=== PATIENT | male | born 1955 | race Caucasian/White ===

== ENCOUNTER 2024-06-20 14:58 | Emergency (ER) | payer BC, OTHER ==
--- OUTSIDE RECORDS SUMMARY | 2024-06-20 15:02 | XMS REPORT | Continuity of Care Document ---
Author Name Unknown Address [address] [facility] [address] [place] [address] [facility] thconnect Address [address] [facility] [address] [place] [address] Care Team Providers Care Industrial Organizational Psychologist Name Role Phone LENKA CARLOS Primary Care Physician Unavailab YAZMIN Patel V Attending Clinician Unavailable DR LENKA CARLOS Attending Clinician Unavailab man [phone] Attending Clinician Unavailable Lenka Carlos Attending Clinician Unavailable RIC PEREZ Attending Clinician Unavailable NIXON HERNANDEZ Attending Clinician Unavailable LEIGHTON MIJARES Attending Clinician Unavailable MERYL Attending Clinician Unavailable Mayur Retana Attending Clinician [phone] Hernesto Attending Clinician Unavailable Nick Lopez Attending Clinician Unavailable EDMUNDO GUZMAN Attending Clinician Unavailable Abundio Alvarez Attending Clinician Unavailable NO PHYSICIAN, . Attending Clinician Unavailable NAVID CLAUDIO Attending Clinician Unavailable DR LENKA CARLOS Admitting Clinician Unavailab donovan SHETH Admitting Clinician Unavailable Hernesto Admitting Clinician Unavailable Payers Payer Name Policy Type Policy Number Effective Date Expirati on Date Source [employer] [id number] 2022 00:00:00 [employer] HEALTH[employer] (MEDICARE REPLACEMENT HMO) [id number] 2022 00:00:00 Problems Condition Name Condition Details Condition Category Status Onset Date Resolution Date Last Treatment Date Treating Clinician Comments Source Tendinitis of right rotator cuff Tendinitis of right rotator cuff Disease Active 07-17 00:00: 00 [facility] Lumbar stenosis with neurogenic claudicati on Lumbar stenosis with neurogenic claudicati on Disease Active 04-16 00:00: 00 [facility] Neuropathi c pain Neuropathi c pain Disease Active 04-16 00:00: 00 [facility] Chronic pain syndrome Chronic pain syndrome Disease Active 04-16 00:00: 00 [facility] Lumbar radiculopa thy Lumbar radiculopa thy Disease Active 04-16 00:00: 00 [facility] Myofascial pain syndrome Myofascial pain syndrome Disease Active 04-16 00:00: 00 [facility] Mixed hyperlipid emia Mixed Hyperlipid emia Problem Active 05-23 00:00: 00 [facility] Gout Gout Problem Active 05-23 00:00: 00 [facility] Mixed anxiety and depressive disorder Mixed Anxiety and Depressive Disorder Problem [facility] Hypertensi ve disorder Hypertensi ve Disorder Problem Active 8 00:00: 00 [facility] Deep venous thrombosis Deep Venous Thrombosis Problem Active 8 00:00: 00 [facility] Benign prostatic hyperplasi a Benign Prostatic Hyperplasi a Problem Active 8 00:00: 00 [facility] Chronic back pain Chronic Back Pain Problem [facility] Allergies, Adverse Reactions, Alerts Allergy Name Allergy Type Status Severity Reaction(s) Onset Date Inactive Date Treating Clinician Comments Source No Known Drug Allergie s DA Active U 2022-10 00:00: 00 [facility] Social History Social Habit Start Date Stop Date Quantity Comments Source Gender identity [facility] History of tobacco use Passive smoker [facility] Alcohol intake 2023-07-09 00:00:00 2023-07-09 00:00:00 3.43 /d [facility] Exposure to SARS-CoV-2 (event) 2023-02-24 00:00:00 2023-03-06 10:34:00 Not sure [facility] History of Social function 2023-03-06 00:00:00 2023-03-06 00:00:00 [facility] Sex Ass[birth year] At 1955 00:00:00 1955 00:00:00 [facility] Smoking Status Start Date Stop Date Source Heavy Tobacco Smoker [facility] Smokes tobacco daily 2023-03-06 00:00:00 [facility] Medications Ordered Medication Name Filled Medication Name Start Date Stop Date Current Medication? Ordering Clinician Indication Dosage Frequency Signature (SIG) Comments Components Source triamcinolo ne acetonide (Kenalog-40 ) injection 80 mg 07-17 18:30: 00 07-17 18:30 :00 No [id number] 80mg [facility] apixaban (Eliquis) 5 MG tablet 07-09 13:54: 12 Yes Q12H every 12 (twelve) hours. [facility] metFORMIN (Glucophage ) 500 MG tablet 07-09 13:54: 12 Yes 500mg Take 500 mg by mouth. [facility] NIFEdipine (Procardia) 10 MG capsule 07-09 13:54: 12 Yes 10mg QD Take 10 mg by mouth 1 (one) time each day. [facility] metFORMIN (Glucophage ) 500 MG tablet 03-06 11:28: 11 Yes 500mg Take 500 mg by mouth. [facility] NIFEdipine (Procardia) 10 MG capsule 03-06 11:28: 11 Yes 10mg QD Take 10 mg by mouth 1 (one) time each day. [facility] apixaban (Eliquis) 5 MG tablet 03-06 11:26: 58 Yes Q12H every 12 (twelve) hours. [facility] apixaban (Eliquis) 5 MG tablet 4-10 14:52: 04 Yes Q12H every 12 (twelve) hours. [facility] tamsulosin (Flomax) 0.4 MG 24 hr capsule 4-03 00:00: 00 Yes QD Take by mouth 1 (one) time each day. [facility] diazePAM (Valium) 5 MG tablet 3-05 00:00: 00 Yes TAKE ONE (1) TABLET(S) BY MOUTH ONCE A DAY NEEDED ANXIETY [facility] HYDROcodone -acetaminop hen (Cochise) 10-325 MG tablet 3-03 00:00: 00 Yes TAKE ONE (1) TABLET EVERY 4 TO 6 HOURS BY MOUTH DIRECTED FOR 30 DAYS. [facility] amoxicillin (Amoxil) 500 MG capsule 2-16 00:00: 00 Yes 500mg [id number] 3D Take 500 mg by mouth in the morning and 500 mg at noon and 500 mg in the evening. [facility] NIFEdipine CC (Adalat CC) 30 MG 24 hr tablet 2-04 00:00: 00 Yes TAKE 1 TABLET EVERY DAY BY ORAL ROUTE DIRECTED FOR 90 DAYS. [facility] cyclobenzap rine (Flexeril) 10 MG tablet 2-02 00:00: 00 Yes TAKE 1 TABLET TWICE A DAY BY ORAL ROUTE NEEDED FOR 15 DAYS. [facility] simvastatin (Zocor) 10 MG tablet 2- 00:00: 00 Yes 10mg QD Take 10 mg by mouth 1 (one) time each day. [facility] triamcinolo ne (Kenalog) 0.1 % cream 2-02 00:00: 00 Yes [facility] Eliquis 5 mg tablet Take 1 tablet twice a day by oral route. Eliquis 5 mg tablet Take 1 tablet twice a day by oral route. No 1 BID Eliquis 5 mg tablet Take 1 tablet twice a day by oral route. [facility] ergocalcife rol (vitamin D2) 1,250 mcg (50,000 unit) capsule TAKE ONE (1) CAPSULE EVERY WEEK BY ORAL ROUTE. ergocalcife rol (vitamin D2) 1,250 mcg (50,000 unit) capsule TAKE ONE (1) CAPSULE EVERY WEEK BY ORAL ROUTE. No ergocalcif christi (vitamin D2) 1,250 mcg (50,000 unit) capsule TAKE ONE (1) CAPSULE EVERY WEEK BY ORAL ROUTE. [facility] Vital Signs Vital Name Observation Time Observation Value Comments S ource Systolic blood pressure 2023-07-09 18:49:00 124 mm[Hg] [facility] Diastolic blood pressure 2023-07-09 18:49:00 74 mm[Hg] [facility] Heart rate 2023-07-09 18:49:00 88 /min [facility] Body height 2023-07-09 18:49:00 165.1 cm [facility] Body weight 2023-07-09 18:49:00 73.029 kg [facility] BMI 2023-07-09 18:49:00 26.79 kg/m2 [facility] Systolic blood pressure 2023-04-16 18:14:00 145 mm[Hg] [facility] Diastolic blood pressure 2023-04-16 18:14:00 71 mm[Hg] [facility] Heart rate 2023-04-16 18:04:00 75 /min [facility] Body height 2023-04-16 18:04:00 165.1 cm [facility] Body weight 2023-04-16 18:04:00 73.483 kg [facility] BMI 2023-04-16 18:04:00 26.96 kg/m2 [facility] Systolic blood pressure 2023-03-06 16:29:00 124 mm[Hg] [facility] Diastolic blood pressure 2023-03-06 16:29:00 72 mm[Hg] [facility] Heart rate 2023-03-06 16:29:00 68 /min [facility] Body height 2023-03-06 16:28:00 165.1 cm [facility] Body weight 2023-03-06 16:28:00 73.483 [facility] BMI 2023-03-06 16:28:00 26.96 kg/m2 [facility] Systolic blood pressure 2023-01-29 20:00:00 120 mm[Hg] [facility] Diastolic blood pressure 2023-01-29 20:00:00 72 mm[Hg] [facility] Heart rate 2023-01-29 20:00:00 86 /min [facility] Body height 2023-01-29 20:00:00 165.1 cm [facility] weight 2023-01-29 20:00:00 76.204 [facility] BMI 2023-01-29 20:00:00 27.96 [facility] Diastolic 2022-05-23 00:00:00 74 mm[Hg] [facility] Height 2022-05-23 00:00:00 67 [in_i] [facility] BMI (Body Mass Index) 2022-05-23 00:00:00 25.5 kg/m2 [facility] BP Systolic 2022-05-23 00:00:00 120 mm[Hg] [facility] Body Weight 2022-05-23 00:00:00 2600 [oz_av] [facility] Procedures Procedure Date / Time Performed Performing Clinician Source AR ARTHROCENTESIS ASP/INJ MAJOR JOINT/BURSA W/OUT US 2023-07-17 18:30:00 Ric Perez [facility] Cataract Surgery [facility] Injection [facility] Injection of Knee [facility] Femoral Arteriography [facility] Stripping of Vein [facility] Kidney Operation [facility] Plan of Care Planned Activity Planned Date Details Comments Source Diagnostic Test Pending 2022-05-23 00:00:00 CMP, serum or plasma [code = CMP, serum or plasma] [facility] Diagnostic Test Pending 2022-05-23 00:00:00 lipid panel, serum [code = lipid panel, serum] [facility] Diagnostic Test Pending 2022-05-23 00:00:00 PSA, serum or plasma [code = PSA, serum or plasma] [facility] Diagnostic Test Pending 2022-05-23 00:00:00 CBC w/ auto diff [code = CBC w/ auto diff] [facility] Encounters Start Date/Time End Date/Time Encounter Type Admission Type Attending Clinicians Care Facility Care Department Encounter ID Source 2023-05-22 08:38:36 Outpatient [facility] [id number] [facility] 2023-05-16 16:56:02 Outpatient [facility] [id number] [facility] 2023-05-07 10:52:18 Outpatient [facility] [id number] [facility] 2023-04-15 17:45:30 Outpatient [facility] [id number] [facility] 2023-03-15 13:32:51 Outpatient [facility] [id number] [facility] 2023-03-06 10:35:06 Outpatient [facility] [id number] [facility] 2023-02-27 16:53:45 Outpatient [facility] [id number] [facility] 2023-02-01 09:29:42 Outpatient [facility] [id number] [facility] 2023-01-29 14:09:24 Outpatient [facility] [id number] [facility] 2023-01-19 15:28:56 Outpatient [facility] [id number] [facility] 2023-01-18 16:27:29 Outpatient [facility] [id number] [facility] 2023-01-04 11:49:40 Outpatient [facility] [id number] [facility] 2022-12-27 14:04:35 Outpatient [facility] [id number] [facility] 2024-04-21 16:32:00 2024-04-21 16:32:00 Outpatient YAZMIN GONG [facility] [id number] [facility] 2023-10-09 09:53:00 2023-10-09 09:54:00 Outpatient N LENKA CARLOS [id number] [facility] [id number] [facility] 2023-09-28 06:10:00 2023-09-28 06:10:00 Outpatient [facility] [id number] [facility] 2023-09-28 06:10:00 2023-09-28 00:00:00 Outpatient Elective Lenka Carlos [facility] [id number] [facility] 2023-07-17 13:30:00 2023-07-17 14:35:45 Office Visit EPIFANIORIC [facility] [id number] [facility] 2023-07-17 00:00:00 2023-07-17 14:35:45 Outpatient [facility] [id number] [facility] 2023-07-09 13:10:00 2023-07-09 13:10:00 Office Visit NIXON HERNANDEZ [facility] [id number] [facility] 2023-06-18 11:10:00 2023-06-18 11:10:00 Outpatient MARYNIXON TURNER [facility] [id number] [facility] 2023-05-29 03:30:00 2023-05-29 03:30:00 Outpatient MARYNIXON TURNER [facility] [id number] [facility] 2023-04-16 13:00:00 2023-04-16 13:00:00 Office Visit NIXON HERNANDEZ [facility] [id number] [facility] 2023-03-12 14:00:00 2023-03-12 14:00:00 Outpatient MARYNIXON TURNER [facility] [id number] [facility] 2023-03-06 11:30:00 2023-03-06 11:30:00 Office Visit LEIGHTON MIJARES [facility] [id number] [facility] 2023-02-20 01:45:00 2023-02-20 01:45:00 Outpatient MARYNIXON TURNER [facility] [id number] [facility] 2023-01-29 15:00:00 2023-01-29 15:00:00 Office Visit MARYNIXON TURNER [facility] [id number] [facility] 2022-12-18 08:35:00 2022-12-18 08:35:00 Outpatient Yazmin Gong [facility] [id number] [facility] 2022-05-23 00:00:00 2022-05-23 00:00:00 Outpatient LAINEY_R [facility] [id number] 2022-05-23 00:00:00 2022-05-23 00:00:00 Outpatient Mayur Retana [facility] [id number] 2022-05-23 00:00:00 2022-05-23 00:00:00 Mayur Retana, DO: [address] , [place] [address] , Ph. [facility], DR. RETANA [id number] [facility] 2022-05-22 00:00:00 2022-05-22 00:00:00 Outpatient MERYL [facility] [id number] [facility] 2020-09-08 02:35:00 2020-09-08 02:35:00 Outpatient [place] [facility] [id number] 2017-12-17 16:24:00 2017-12-17 16:24:00 Outpatient Nick Mascorro [facility] [id number] [facility] 2017-10-29 15:03:00 2017-10-29 15:03:00 Outpatient Nick Mascorro [facility] [id number] [facility] 2017-10-01 10:19:00 2017-10-01 10:19:00 Outpatient Nick Mascorro [facility] [id number] [facility] 2017-05-28 13:47:00 2017-05-28 13:47:00 Outpatient Nick Mascorro [facility] [id number] [facility] 2017-04-27 10:20:00 2017-04-27 10:20:00 Outpatient Nick Mascorro [facility] [id number] [facility] 2017-03-14 12:23:00 2017-03-14 12:23:00 Outpatient Nick Mascorro [facility] [id number] [facility] 2017-02-12 10:53:00 2017-02-12 16:49:00 Emergency ER EDMUNDO GUZMAN [facility] [id number] [facility] 2017-02-09 11:00:00 2017-02-09 11:00:00 Outpatient Nick Mascorro [facility] [id number] [facility] 2016-10-02 11:24:00 2016-10-02 11:24:00 Outpatient Nick Mascorro [facility] [id number] [facility] 2016-08-25 11:51:00 2016-08-25 11:51:00 Outpatient Nick Mascorro [facility] [id number] [facility] 2016-07-13 16:08:00 2016-07-13 16:08:00 Outpatient Yazmin Gong [facility] [id number] [facility] 2016-04-11 17:00:00 2016-04-11 17:00:00 Outpatient Nick Mascorro [facility] [id number] [facility] 2016-01-11 12:38:00 2016-01-11 12:38:00 Outpatient Nick Mascorro [facility] [id number] [facility] 2015-10-13 17:36:00 2015-10-13 17:36:00 Outpatient Nick Mascorro [facility] [id number] [facility] 2009-09-14 11:38:00 2009-09-14 11:38:00 Outpatient Nick Mascorro [facility] [id number] [facility] 2007-11-08 15:39:00 2007-11-08 15:39:00 Outpatient Abundio Thakur [facility] [id number] [facility] 2006-12-24 08:49:00 2006-12-24 08:49:00 Outpatient NO PHYSICIAN, . [facility] [id number] [facility] 2003-09-12 11:17:00 2003-09-12 16:00:00 Emergency ER NAVID CLAUDIO [facility] [id number] [facility] Results Test Description Test Time Test Comments Results Result Co mments Source Partial Thromboplastin [id number] 08:00:00* Test Item Value Reference Range Interpretation Comme nts Partial Thromboplastin Time (test code = PTT) 25.4 Seconds 23.9-32.8 N Basic Metabolic [id number] 08:00:00* Test Item Value Reference Range Interpretation Comme nts SODIUM (test code = NA) 142.0 mmol/L 136.0-145.0 N Potassium,K (test code = K) 4.2 mmol/L 3.0-5.1 N Chloride (test code = CL) 107 mmol/L 98-107 N Carbon Dioxide (test code = CO2) 29 mmol/L 20-31 N Anion Gap (test code = GAP) 6 mmol/L 5-15 N Blood Urea Nitrogen (test code = BUN) 13 mg/dL 9-23 N Creatinine (test code = CREATT) 0.77 mg/dL 0.55-1.02 N Creatinine Clr Calc Pharmacy (test code = CRCLPHA) 79.01 mL/min Estimated Glomerular Filt Rate (test code = EGFR.XX) 99 See_Comment Reported eGFR is based on the CKD-EPI 202 equation thatdoes not use a race coefficient. Additional information canbe found at:[id number] ([email or web address]) [Automated message] The system which generated this result transmitted reference range: >=90 ml/min/1.73m2. The reference range was not used to interpret this result as normal/abnormal. BUN/Creatinine Ratio (test code = BCRATIO) 17 ratio 10-20 N Glucose (test code = GLU) 152 mg/dL 74-106 H Osmolality,Calculate d (test code = OSMOC) 296.6 Calcium (test code = CA) 9.4 mg/dL 8.3-10.6 N Lipid [id number] 08:00:00* Test Item Value Reference Range Interpretation Comme nts Triglycerides (test code = TRIG) 253 mg/dL 9-200 H Cholesterol (test code = CHOL) 247 mg/dL 0-200 H LDL Cholesterol,Calculated (test code = LDLC) 142 mg/dL 0-130 H LDL (mg/dL)Op timal <100Near Optimal 100-129Borderline High 130-159High 160-189Very High >=190 VLDL CHOLESTEROL (test code = VLDL) 51 mg/dL HDL Cholesterol (test code = HDL) 54 mg/dL 40-60 N LDL/HDL Ratio (test code = LDLHDL) 3 Chol/HDL Ratio (test code = CHLHDL) 4.6 ratio 0.0-5.0 N
--- NOTE | 2024-06-20 16:16 | RAD REPORT ---
EXAM DESCRIPTION: US - Extremity Venous Uni Ltd - 06/20/2024 3:57 pm CLINICAL HISTORY: SWELLING Leg swelling and edema. COMPARISON: No comparisons FINDINGS: Left lower extremity venous system was interrogated with Doppler technique. Thrombus is no shima in the left popliteal vein most compatible with DVT. No additional DVT evident. IMPRESSION: Positive left popliteal DVT.
--- NOTE | 2024-06-20 16:17 | RAD REPORT ---
EXAM DESCRIPTION: US - Lower Extremity Artery Uni Ltd - 06/20/2024 3:57 pm CLINICAL HISTORY: Pain;Swelling COMPARISON: No comparisons FINDINGS: Left lower extremity arterial system demonstrates triphasic waveforms to the level of the left dorsalis pedis. Left dorsalis pedis demonstrates blunted and monophasic waveform. No complete oc clusion is seen. IMPRESSION: [id number] peripheral vascular disease left dorsalis pedis artery.
[2024-06-20] MEDS ORDERED: HYDROCODONE/APAP 7.5/325 MG TAB ONE (18:04)
[2024-06-20 18:17] LABS: Absolute Basophils 0.1 K/uL (0-0.5); Absolute Eosinophils 0.3 K/uL (0-0.5); Absolute Lymphocytes (CBC) 2.6 K/uL (0.7-4.9); Absolute Monocytes 0.5 K/uL (0.1-1.3); Absolute Neutrophil 3.1 K/uL (1.8-8.0); Hematocrit 44.1 % (39.6-49.0); Hemoglobin 15.1 g/dL (13.6-17.9); Lymphocytes % 39.5 % (15.3-44.8); MCH 32.4 pg (27.0-35.0); MCHC 34.2 g/dL (32.0-36.0); MCV 94.7 fL (80-100); MPV 7.2 fL (7.6-11.3); Neutrophils % 46.5 % (41.7-73.7); Nucleated Red Blood Cells % 0.1 % (0-0); Platelets 229 thou/uL (152-406); RBC Red Blood Cell Count 4.66 M/uL (4.33-5.43); Red Cell Distribution Width 13.1 % (12.1-15.2)
[2024-06-20 18:21] LABS: PT Prothrombin Time 11.2 SECONDS (9.4-12.5); PTT, Activated Partial Thromb 31.1 SECONDS (24.3-36.9)
[2024-06-20 18:55] LABS: Anion Gap 3.7 mEq/L (5.0-15.0); Potassium 3.7 mEq/L (3.5-5.1)
--- NOTE | 2024-06-20 19:55 | EDPHYS ---
Physician Documentation [facility] Name: Mango Dean Age: 69 yrs Sex: Male : 1955 Arrival Date: 06/20/2024 Time: 14:58 Bed 12 Private MD: ED Braulio Wynn HPI: 06/20 15:35 This 69 yrs old Male presents to ER via Ambulatory with complaints of Wound Check - leg.cp 15:35 The patient presents with pain, that is acute, swelling, open wounds to left lower leg. cp 15:35 Onset: The symptoms/episode began/occurred last month, and became worse 2 day(s) ago, cp after "popping" wound open. 15:35 Associated signs and symptoms: Pertinent positives: redness, Pertinent negatives fever, cp numbness, weakness. Treatment prior to arrival includes: no previous treatment. 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 - Infectious Disease History:: Denies. - Social history:: Smoking status: Patient reports the use of cigarette tobacco products, cigars. ROS: 15:40 MS/extremity: Positive for erythema, pain, swelling, tenderness, of the left lower leg, cp open wounds, 15:40 Eyes: Negative for injury, pain, redness, and discharge, cp 15:40 Constitutional: Negative for body aches, chills, fever, poor PO intake, 15:40 Cardiovascular: Negative for chest pain, palpitations, 15:40 Respiratory: Negative for cough, shortness of breath, wheezing, 15:40 Abdomen/GI: Negative for abdominal pain, nausea, vomiting, and diarrhea, 15:40 Neuro: Negative for altered mental status, headache, numbness, weakness, 15:40 All other systems are negative, Exam: 15:45 Constitutional: The patient appears in no acute distress, alert, awake, cp non-diaphoretic, non-toxic, well developed, well nourished, uncomfortable, 15:45 Head/Face: Normocephalic, atraumatic. cp 15:45 Eyes: Periorbital structures: appear normal, Conjunctiva: normal, no exudate, no injection, Sclera: no appreciated abnormality, Lids and lashes: appear normal, bilaterally, 15:45 ENT: External ear(s): are unremarkable, Nose: is normal, Mouth: Lips: moist, Oral mucosa: pink and intact, moist, Posterior pharynx: Airway: no evidence of obstruction, patent, 15:45 Chest/axilla: Inspection: normal, 15:45 Cardiovascular: Rate: normal, Rhythm: regular, Edema: is not appreciated, JVD: is not appreciated, 15:45 Respiratory: the patient does not display signs of respiratory distress, Respirations: normal, no use of accessory muscles, no retractions, labored breathing, is not present, Breath sounds: are clear throughout, no decreased breath sounds, no stridor, no wheezing, 15:45 Abdomen/GI: Inspection: abdomen appears normal, Palpation: abdomen is soft and non-tender, in all quadrants, 15:45 Musculoskeletal/extremity: Extremities: noted in the left lower leg: mild erythema noted anterior proximal lower leg, mild swelling, tenderness posterior left knee, 2 superficial wounds noted with scant drainage proximal anterior left lower leg and medial side of left ankle, 15:45 Neuro: Orientation: to person, place \\T\\ time. Mentation: is normal, Motor: moves all fours, strength is normal, Sensation: is normal, 18:17 ECG was reviewed by the Attending Physician. cp Vital Signs: 15:23 BP 132 / 97; Pulse 78; Resp 16; Temp 98.1; Pulse Ox 97% ; Weight 72.57 kg; Height 5 ft. db 5 in. ; 18:00 BP 100 / 71; Pulse 78; Resp 18; Temp 98.1; Pulse Ox 100% ; ar6 18:30 BP 98 / 74; Pulse 77; Resp 17; Pulse Ox 100% on R/A; ar6 21:23 BP 106 / 68; Pulse 77; Resp 18; Pulse Ox 99% on R/A; ar6 15:23 Body Mass Index 26.63 (72.57 kg, 165.1 cm) db MDM: 15:22 Patient medically screened. ec2 19:55 Data reviewed: vital signs, nurses notes, lab test result(s), EKG, radiologic studies, cp ultrasound, I have discussed the patient's presentation/case with the attending Emergency Department Physician;. 19:55 Differential diagnosis: cellulitis, abscess, dvt, sepsis. I considered the following cp discharge prescriptions or medication management in the emergency department Medications were administered in the Emergency Department. See MAR. Counseling: I had a detailed discussion with the patient and/or guardian regarding the historical points, exam findings, and any diagnostic results supporting the discharge/admit diagnosis, lab results, radiology results, the need for outpatient follow up, a family practitioner, to return to the emergency department if symptoms worsen or persist or if there are any questions or concerns that arise at home. ED course: Vital signs stable. Discussed results of today's ultrasound that showed DVT in the popliteal vein. After discussing this with the patient feel like this is an acute DVT and patient reports has been taking his prescribed 5 mg of Eliquis twice daily. I spoke with Dr. Schneider, the hospitalist, concerning admission for treatment of the DVT and his recommendation is outpatient treatment with patient discontinuing the Eliquis and starting Xarelto. 06/20 16:54 Order name: BMP; Complete Time: 19:09 cp 06/20 19:09 Interpretation: Normal except: ANION GAP 3.7. cp 06/20 16:54 Order name: CBC with Diff; Complete Time: 19: cp 06/20 16:54 Order name: PT-INR; Complete Time: 19: cp 06/20 16:54 Order name: Ptt, Activated; Complete Time: 19: cp 06/20 15:31 Order name: LE Artery Uni Ltd; Complete Time: 16:31 cp 06/20 16:49 Interpretation: Report reviewed. cp 06/20 15:31 Order name: Extremity Venous Unilateral Ltd; Complete Time: 16:31 cp 06/20 16:50 Interpretation: Report reviewed. cp 06/20 16:54 Order name: EKG; Complete Time: 16:54 cp 06/20 16:54 Order name: IV; Complete Time: 18:02 cp 06/20 16:54 Order name: EKG - Nurse/Tech; Complete Time: 18:12 cp 06/20 18:20 Order name: Labs - recollect needed: please recollect green top; Complete Time: 19:54 em1 EC:17 Rate is 62 beats/min. Rhythm is regular. NJ interval is normal. QRS interval is cp prolonged at 108 msec. QT interval is normal. T waves are Inverted in leads aVL, aVR, V2. Interpreted by me. Reviewed by me. Administered Medications: 18:00 Drug: Hydrocodone-Acetaminophen PO (7.5 mg-325 mg) 1 tabs PO once; RASS on ADMIN: ar6 Combtv4, Very Agttd3, Agttd2, Rstlss1, AlertClm0, Drwsy-1, Lt Sdtn-2, Mod Sdtn-3, Dp Sdtn-4, UnArsble-5 Route: PO; 18:20 Follow up: Response: No adverse reaction; Pain is decreased ar6 20:15 Drug: Xarelto PO 15 mg PO once Route: PO; ar6 21:24 Follow up: Response: No adverse reaction ar6 20:15 Drug: Clindamycin IVPB 900 mg IVPB once over 30 mins; (mix in 50 mL) Route: IVPB; ar6 Infused Over: 30 mins; Site: right antecubital; 21:24 Follow up: Response: No adverse reaction; IV Status: Completed infusion; IV Intake: [id number] Disposition Summary: 06/20/24 19:55 Discharge Ordered Notes: Location: Home cp Problem: new cp Symptoms: have improved cp Condition: Stable cp Diagnosis - Acute embolism and thrombosis of unspecified deep veins of left lower extremity cp - Cellulitis of left lower limb cp Followup: cp - With: Private Physician - When: 2 - 3 days - Reason: Wound Recheck Discharge Instructions: - Discharge Summary Sheet cp - Cellulitis, Adult cp - Deep Vein Thrombosis cp Forms: - Medication Reconciliation Form cp - Antibiotic Education cp - Prescription Opioid Use cp - Patient Portal Instructions cp - Leadership Thank You Letter cp Prescriptions: - Clindamycin HCl 300 mg Oral Capsule - take 1 capsule ORAL route every 6 hours for 10 days; 40 capsule; Refills: 0, cp Product Selection Permitted - Xarelto 15 mg Oral tablet - take 1 tablet ORAL route 2 times per day for 21 days; 42 tablet; Refills: 0, cp Product Selection Permitted Addendum: 06/22/2024 22:15 I was immediately available for consultation during this patient's visit. I did not e c2 personally see the patient or discuss the patient with the MARIA D. . Signatures: Dispatcher [employer] Nate Eaton em1 Baudilio Cruz PA PA cp Allie Loja RN RN db Braulio Benitez MD MD ec2 Maier, Kenna, RN RN ar6 Corrections: (The following items were deleted from the chart) 06/20 15: 15:24 PMHx: None; db db 15 15:31 Extremity Venous Uni Ltd+[email or web address] ordered. EDMS EDMS
--- NOTE | 2024-06-20 19:55 | ER ---
[facility] Name: Mango Dean Age: 69 yrs Sex: Male : 1955 Arrival Date: 06/20/2024 Time: 14:58 Bed 12 Private MD: Diagnosis: Acute embolism and thrombosis of unspecified deep veins of left lower extremity;Cellulitis of left lower limb Presentation: 06/20 15:23 Chief complaint: Patient states: LEFT LOWER LEG WITH WOUND X 2 DAYS. STATES POPPED THE db WOUND A MONTH AGO. NOW HAS WOUND AND LEG IS RED AND PURPLE IN COLOR. Coronavirus screen: Client denies travel out of the [place] in the last 14 days. At this time, the client does not indicate any symptoms associated with coronavirus-19. Ebola Screen: Patient negative for fever greater than or equal to 101.5 degrees Fahrenheit, and additional compatible Ebola Virus Disease symptoms Patient denies exposure to infectious person. Patient denies travel to an Ebola-affected area in the 21 days before illness onset. No symptoms or risks identified at this time. Initial Sepsis Screen: Does the patient meet any 2 criteria? No. Patient's initial sepsis screen is negative. Does the patient have a suspected source of infection? No. Patient's initial sepsis screen is negative. Risk Assessment: Do you want to hurt yourself or someone else? Patient reports no desire to harm self or others. Onset of symptoms was June 20, 2024. 15:23 Method Of Arrival: Ambulatory db 15:23 Acuity: ESEQUIEL 3 db Triage Assessment: 15:25 General: Appears in no apparent distress. comfortable, Behavior is calm, cooperative. db Derm: Wound noted left leg. 15:25 Derm: Skin is. 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 - Infectious Disease History:: Denies. - Social history:: Smoking status: Patient reports the use of cigarette tobacco products, cigars. Screenin:00 [facility] ED Fall Risk Assessment (Adult) History of falling in the last 3 months, ar6 including since admission No falls in past 3 months (0 pts) Confusion or Disorientation No (0 pts) Intoxicated or Sedated No (0 pts) Impaired Gait No (0 pts) Mobility Assist Device Used No (0 pt) Altered Elimination No (0 pt) Score/Fall Risk Level 0 - 2 = Low Risk. Abuse screen: Denies threats or abuse. Denies injuries from another. Nutritional screening: No deficits noted. Tuberculosis screening: No symptoms or risk factors identified. Assessment: 18:00 General: Appears in no apparent distress. comfortable, Behavior is calm, cooperative, ar6 appropriate for age. Pain: Complains of pain in left leg. Neuro: Level of Consciousness is awake, alert, obeys commands, Oriented to person, place, time, situation. Cardiovascular: Denies chest pain, Capillary refill < 3 seconds red streaking to LLE with wound to L knee. Respiratory: Airway is patent. GI: Abdomen is round non-distended, Patient currently denies nausea, vomiting. : Denies urinary frequency, urgency. EENT: Oral mucosa is moist. Derm: Skin is intact, is healthy with good turgor, LLE with streaks and wound to left knee. Musculoskeletal: Denies weakness in left leg. Vital Signs: 15:23 BP 132 / 97; Pulse 78; Resp 16; Temp 98.1; Pulse Ox 97% ; Weight 72.57 kg; Height 5 ft. db 5 in. ; 18:00 BP 100 / 71; Pulse 78; Resp 18; Temp 98.1; Pulse Ox 100% ; ar6 18:30 BP 98 / 74; Pulse 77; Resp 17; Pulse Ox 100% on R/A; ar6 21:23 BP 106 / 68; Pulse 77; Resp 18; Pulse Ox 99% on R/A; ar6 15:23 Body Mass Index 26.63 (72.57 kg, 165.1 cm) db Vitals: 18:00 Cardiac Rhythm Assessment Regular. ar6 ED Course: 15:01 Patient arrived in ED. im 15:02 Braulio Benitez MD is Attending Physician. ec2 15:24 Triage completed. db 15:25 Baudilio Cruz PA is PHCP. ec2 15:26 Arm band placed on left wrist. Patient placed in waiting room. db 15:59 US LE Artery Uni Ltd In Process Unspecified. EDMS 15:59 US Extremity Venous Unilateral Ltd In Process Unspecified. EDMS 16:40 Kenna Maier, RN is Primary Nurse. ar6 18:00 No apparent distress. Awaiting lab results, Awaiting radiology results. ar6 18:00 Patient has correct armband on for positive identification. Bed in low position. Call ar6 light in reach. Side rails up X 1. Provided Education on: medication. Client placed on continuous cardiac and pulse oximetry monitoring. NIBP monitoring applied. Door closed. Noise minimized. Lights dimmed. Warm blanket given. lowered bed. 18:00 No provider procedures requiring assistance completed. Inserted saline lock: 20 gauge ar6 in right antecubital area, using aseptic technique. Blood collected. Flushed with 10 mL NS. 18:02 Ptt, Activated Sent. ar6 18:02 PT-INR Sent. ar6 18:02 CBC with Diff Sent. ar6 18:02 BMP Sent. ar6 18:21 BMP Sent. ar6 21:24 IV discontinued, intact, bleeding controlled, No redness/swelling at site. Pressure ar6 dressing applied. Administered Medications: 18:00 Drug: Hydrocodone-Acetaminophen PO (7.5 mg-325 mg) 1 tabs PO once; RASS on ADMIN: ar6 Combtv4, Very Agttd3, Agttd2, Rstlss1, AlertClm0, Drwsy-1, Lt Sdtn-2, Mod Sdtn-3, Dp Sdtn-4, UnArsble-5 Route: PO; 18:20 Follow up: Response: No adverse reaction; Pain is decreased ar6 20:15 Drug: Xarelto PO 15 mg PO once Route: PO; ar6 21:24 Follow up: Response: No adverse reaction ar6 20:15 Drug: Clindamycin IVPB 900 mg IVPB once over 30 mins; (mix in 50 mL) Route: IVPB; ar6 Infused Over: 30 mins; Site: right antecubital; 21:24 Follow up: Response: No adverse reaction; IV Status: Completed infusion; IV Intake: [id number] Medication: 18:00 VIS not applicable for this client. ar6 Intake: 21:24 IV: 50ml; Total: 50ml. ar6 Outcome: 19:55 Discharge ordered by . cp 21:23 Discharged to home ambulatory, ar6 21:23 Condition: good 21:23 Discharge instructions given to patient, family, Instructed on discharge instructions, follow up and referral plans. medication usage, Demonstrated understanding of instructions, follow-up care, medications, Prescriptions given X 2, 21:32 Patient left the ED. ar6 Signatures: Dispatcher [employer] EDBaudilio Hebert PA PA cp Benton, Danielle, RN RN Estefany Will Edwin, MD MD ec2 Kenna Maier RN RN ar6 Corrections: (The following items were deleted from the chart) 15:25 15:24 PMHx: None; nikkie lundy
[2024-06-20] MEDS ORDERED: CLINDAMYCIN 900MG/D5W 900 MG/50 ML IVPB IV ONE (20:09)
[2024-06-20] MEDS ORDERED: RIVAROXABAN 20 MG TABLET PO ONE (20:09)
[2024-06-20 21:37] VITALS: TEMP 98.1
[2024-06-20 21:41] VITALS: BP 106/68; O2SAT 99
--- NOTE | 2024-06-21 13:59 | EKG ---
Test Date: 2024-06-20 Test Time: 18:10:51 Tear Down Man: AIDE MEASUREMENT RESULTS: Intervals: Rate: 62 NM: 178 QRSD: 108 QT: 408 QTc: 414 [place]: P: 47 NM: 178 QRS: 66 T: 73 INTERPRETIVE STATEMENTS: Normal sinus rhythm No previous ECG available for comparison Electronically Signed On 06-21-24 13:59:07 CDT by Fidel Spence
== END 2024-06-20 21:32 | disposition home or self-care (01) ==
LOC: ER 14:58
DX: I82.402 Acute embolism and thrombosis of unspecified deep veins of left lower extremity (principal); L03.116 Cellulitis of left lower limb; Z86.711 Personal history of pulmonary embolism; Z72.0 Tobacco use
CPT/HCPCS: 36415; 80048; 85025; 85610; 85730; 93005; 93926; 93971; 96365; 99284